=== PATIENT | female | born 1995 | race Caucasian/White ===

== ENCOUNTER 2018-06-27 21:05 | Emergency (ER) | payer MEDICAID, SELFPAY ==
[2018-06-27 21:06] VITALS: BP 153/94; PULSE 92; RESP 16; TEMP 36.8; O2SAT 98; BMI 32.1
--- NOTE | 2018-06-27 21:49 | ED.DCSUM_ITS ---
- ER Visit Summary Date of Service: 06/27/18 Chief Complaint: Rash right groin area History of Present Illness: The patient is a 22 F who wanted to be checked because she was exposed to shingles 7 days ago. She has history of chickenpox as a child. She was seen by her primary care physician and placed on an antifungal cream which I believe his Kenalog cream. She states the itching is resolved but the rash still present. She denies fever, chills night sweats. She has history of diabetes. She has no allergies. Physical Examination: Vital signs remarkable for blood pressure 123/94. Vital signs otherwise unremarkable. She has evidence of folliculitis secondary to shaving the pubis region. There is no inguinal lymphadenopathy. There is an erythematous blanching rash on the proximal anterior right thigh. It is blotchy. This may represent folliculitis difficult to determine since she has been applying a steroid/antifungal cream. Test Results: None were obtained Emergency Department Course and Treatment: Patient was instructed to stop using the cream. Treatment Plan: Appropriate home-going instructions, proper hygiene Disposition: Discharge to home in stable condition Impression: 1. Folliculitis pubis region secondary to shaving 2. Nonspecific erythematous rash This note was generated with [employer] dictation software. It may contain incorrect words, spelling, and punctuation that were not noted in review of the chart prior to signing ED Disposition - Plan for ED Patient: Disposition: Home or Assisted Living Instructions: ED Folliculitis, ED Dermatitis Non Specific Rash Referrals: Care Physician,No Primary [Primary Care Provider] -
[2018-06-27 22:01] VITALS: RESP 14
== END 2018-06-27 22:01 | disposition home or self-care (01) ==
PROVIDERS: Emergency Provider Emergency Medicine
DX: L73.9 Follicular disorder, unspecified (principal); L53.9 Erythematous condition, unspecified; E11.9 Type 2 diabetes mellitus without complications; Z86.19 Personal history of other infectious and parasitic diseases
CPT/HCPCS: 99282

== ENCOUNTER 2021-11-27 06:45 | Emergency (ER) | payer MEDICAID, SELFPAY ==
[2021-11-27 06:46] VITALS: BP 131/98; PULSE 99; RESP 16; TEMP 36.7; O2SAT 98; BMI 36.0
--- NOTE | 2021-11-27 06:55 | EDS_ITS ---
HPI History of Present Illness Chief Complaint: Upper Extremity Injury Detail of Chief Complaint: Atraumatic left shoulder and arm pain Informant: patient Occured/Mechanism Comment: Awakened from sleep because of pain in the left arm/shoulder region Onset/Context/Timing Onset: Hours (0500) Context: Sudden Onset Timing: Continuous Quality of Pain: Aching Location: Left shoulder region Current Severity: Mild Maximum Severity: Severe Worsened by: Movement Relieved by: Internally rotated and a deducted Associated Symptoms Associated Symptoms: Negative for Parasthesia, Weakness or Loss of Funtion Narrative Narrative: Patient is a 26-year-old [id number] woman who presents with left shoulder pain that awoke her from sleep. She denies fever, chills night sweats. She denies injury. She denies paresthesia, anesthesia or motor weakness. She denies cardiac or respiratory symptoms. She denies prior injury. Patient denies rash. There is no history of gout or pseudogout. Tetanus Immunization: 5-10 years Prior similar symptoms: No Recent Illness/Hospitalization: No PFSH PFSH Medical History Anxiety Depression Hypertension Home Medications Prozac 1 tab PO DAILY 06/27/18 [History Last Taken Unknown] naproxen 500 mg tablet 500 mg PO BID #14 tabs 11/27/21 [Rx Last Taken Unknown] Allergy/AdvReac Type Severity Reaction Status Date / Time No Known Allergies Allergy Verified 06/27/18 21:09 Social History (Updated 11/27/21 @ 06:[address] Anthony Torrez MD) household members: significant other Smoking Status: Never smoker substance use type: does not use ROS ROS ED Constitutional Constitutional ED: Denies chills, fever(s), subjective, sweats or weight loss Cardiovascular Cardiovascular: Denies chest pain or palpitations Respiratory/Chest Respiratory/Chest: Denies cough, dyspnea or dyspnea on exertion Integumentary Denies Abrasions or rash Neurologic Neurologic: Denies paresthesias, weakness or other Hematologic/Lymphatic Hematologic/Lymphatic: Denies easy bleeding or easy bruising EXAM Physical Exam Const Vital Signs: 11/27/21 06:46 Temperature 98.1 F Temperature Source Temporal Pulse Rate 99 Respiratory Rate 16 Blood Pressure 131/98 H Blood Pressure Mean 109 Pulse Ox 98 Oxygen Delivery Method Room Air Positive well nourished, well developed and obese; Negative for cachectic, contractures or unkempt Constitutional Narrative: Patient appears uncomfortable. She is holding her arm against her torso. General Appearance ED: well developed; Negative for unkempt, cachectic, contract ures, cyanotic, diaphoretic or NAD Nutritional Appearance: obese; Negative for cachectic HEENT Reports moist mucous membranes HEENT Narrative: Ears normal. Nares patent. normocephalic and atraumatic Eyes PERRL and EOMs intact bilaterally Eyes Narrative: Sclera is anicteric. Neck full ROM and supple Resp normal respiratory effort and clear to auscultation bilaterally Cardio regular rate, regular rhythm, S1 normal heart sound, S2 normal heart sound and no murmurs Back/Spine Cervical Spine: Negative for cervical spine tenderness Thoracic Spine / Upper Back: Negative for thoracic spinal tenderness Extremity normal to inspection; Negative for full ROM Extremity Narrative: Range of motion limited to pain. There is no edema. Axillary, median, radial and ulnar function intact. Radial pulses palpable. There is pain palpation of the bicipital groove. There is pain ovation over the AC joint. There is pain ovation over the shoulder joints. Internal extra rotation causes minimal discomfort. Patient has increased pain with passive AB duction and pain increases as arm is elevated towards 90 degrees. She has no discomfort with flexion against resistance. Neuro oriented x3, CN's II-XII intact bilaterally and moves all extremities Sensorium / Orientation: alert Psych Appearance: Negative for unkempt Skin General Skin Exam: Negative for petechiae Lesions: no lesions Rashes: no rashes MDM MDM MDM Narrative Medical decision making narrative: Atraumatic pain of uncertain etiology. Will obtain x-ray to determine if there is evidence of calcification of the supraspinatus tendon. Also to rule out arthritic changes. Patient with atraumatic musculoskeletal left shoulder pain of unknown etiology. We will treat with NSAIDs. Recommend ice and follow-up with Dr. Zabala Radiography Diagnostic Testin views of the left shoulder were obtained. They were independently reviewed and interpreted by me at 0712 as negative. There is no arthritic changes. There is no asymmetry of the joint. There is no evidence of prior fracture. Discharge Plan Triage Chief Complaint: Upper Extremity Injury ED Provider: Anthony Torrez Dx/Rx/DC Orders Clinical Impression: Pain of left shoulder joint on movement Instructions: ED Shoulder Pain, Uncertain Cause Prescriptions: New naproxen 500 mg tablet 500 mg PO BID Qty: 14 0RF No Action Prozac 1 tab PO DAILY Stand Alone Forms: ED Work / School Excuse Primary Care Provider: Neo Zabala Referrals: Neo Zabala MD [Primary Care Provider] - 3-5 Days if not improving Activity Restrictions/Additional Instructions: 1. Apply ice 6-8 times a day for the next 2 to 3 days 2. If you develop a rash, fever or swelling of your left shoulder region return to the emergency department Disposition Disposition: Home, Self Care
[2021-11-27] MEDS: HYDROcodone Bitartrate/Apap 5/325 Tablet PO (06:59)
--- NOTE | 2021-11-27 07:04 | RAD_ITS ---
STUDY: X-RAY - LEFT SHOULDER REASON FOR EXAM: Left shoulder pain this morning, limited range of motion, no specific injury. TECHNIQUE: 4 view(s) of the shoulder. COMPARISON: None. FINDINGS: Normal glenohumeral articulation. Normal acromioclavicular joint. Normal acromion. Normal humeral head and visualized proximal humerus with an incidental pseudocyst in the greater tuberosity on the external view from normal yellow marrow. The soft tissue structures are unremarkable. Normal visualized pulmonary apex. RAD/Shoulder min 2 Views IMPRESSION: Normal x-ray examination of the left shoulder. Electronically Signed: Richard Agustin MD at 7:40 EDT ,
[2021-11-27 07:28] VITALS: BP 119/89; PULSE 78; RESP 16; O2SAT 95
== END 2021-11-27 07:30 | disposition home or self-care (01) ==
LOC: ED 07:20
PROVIDERS: Emergency Provider Emergency Medicine; PCP Family Medicine; Visit Provider Emergency Medicine
DX: M25.512 Pain in left shoulder (principal); I10 Essential (primary) hypertension; M79.622 Pain in left upper arm; F41.9 Anxiety disorder, unspecified; F32.A Depression, unspecified; E66.9 Obesity, unspecified; Z79.899 Other long term (current) drug therapy
CPT/HCPCS: 73030; 99282

== ENCOUNTER 2023-02-13 20:48 | Emergency (ER) | payer MEDICAID, SELFPAY ==
[2023-02-13 20:49] VITALS: BP 156/90; PULSE 88; RESP 18; TEMP 36.4; O2SAT 98; BMI 33.5
[2023-02-13 21:26] LABS: Absolute Lymphocyte Count 4.26 X10^3/uL (0.83-4.51); Absolute Neutrophil Count 5.3 X10^3/uL (2.0-7.7); Basophil# 0.06 X10^3/uL; Basophil% 0.6 % (0-1); Eosinophil# 0.18 X10^3/uL; Eosinophils% 1.7 % (0-5); Hematocrit 43.4 % (37-47); Hemoglobin 14.3 g/dL (12.0-15.0); Lymphocyte # 4.26 X10^3/ul (0.83-4.51); Lymphocyte % 39.9 % (19-41); Mean Corp Hgb Conc 32.9 g/dL (32-36); Mean Corpuscular Hgb 28.8 pg (27.0-32.0); Mean Corpuscular Volume 87.5 fL (81-99); Mean Platelet Vol. 10.7 fl (6.2-12.0); Monocyte# 0.81 X10^3/uL; Monocyte% 7.6 % (0-10); NRBC Flagged by Analyzer 0 % (0-5); Neutrophil # 5.34 X10^3/uL (2.7-7.7); Platelet Count 382 K/mm3 (150-450); RBC Distribution Width CV 12.8 % (11.6-14.6); RBC Distribution Width SD 40.9 fl (35.1-43.9); Red Blood Count 4.96 M/mm3 (4.2-5.4); White Blood Count 10.7 K/mm3 (4.4-11.0)
[2023-02-13 21:42] LABS: Anion Gap 4 (5-15); BUN 14 mg/dL (7-18); BUN/Creat Ratio 17.5 RATIO (10-20); Calcium,Total 9.2 mg/dL (8.5-10.1); Chloride 109 mmol/L (98-107); EST Glomerular Filtration Rate 92 mL/min (>60); Est Glom Filt Rate - Afr Amer 112 mL/min (>60); Estimated Creatinine Clearance 103.63 ml/min; Glucose 101 mg/dL (74-106); Potassium 3.7 mmol/L (3.5-5.1); Sodium Level 142 mmol/L (136-145)
[2023-02-13 21:48] LABS: Amphetamine Urine VISTA NEGATIVE (<1000 ng/mL); Barbiturate Urine VISTA NEGATIVE (< 200 ng/mL); Benzodiazepine Urine VISTA NEGATIVE (< 200 ng/mL); Cocaine Urine VISTA POSITIVE (< 300 ng/mL); Ecstacy Urine VISTA NEGATIVE (< 500 ng/mL); Methadone Urine VISTA NEGATIVE (< 300 ng/mL); PCP Urine VISTA NEGATIVE (< 25 ng/mL); THC Urine VISTA NEGATIVE (< 50 ng/mL); Vista UDS pH Range 6
[2023-02-13 21:56] LABS: Internal QC Validated? YES +Cl - CLEAR BKGD; Pregnancy, Serum, hCG Quali. NEGATIVE Negative
[2023-02-13 22:00] VITALS: PULSE 71; RESP 16; O2SAT 97
[2023-02-13 22:01] LABS: Alcohol, Blood (Medical)-Serum < 3.0 mg/dL
--- NOTE | 2023-02-13 22:12 | NURSING ---
CALLED CRISIS AT [phone]
--- NOTE | 2023-02-13 22:23 | ED.RN ---
Per dr. cheng no sitter needed.
--- NOTE | 2023-02-13 22:26 | EDS_ITS ---
HPI HPI - Psych History of Present Illness Chief Complaint: Suicidal Narrative Narrative: 7-year-old female with history of depression presenting with suicidal thoughts and depression. She states he does not have a specific plan. She states she has history depression but no history of suicide attempts. She states he feels this way because she does not feel good enough for anybody. There is no specific trigger. She is here with her significant other. She stated currently she does not feel suicidal anymore. She and her significant other state that they are surrounded by family and I have a lot of support. PFSH PFSH Medical History Anxiety Depression Hypertension Home Medications Prozac 1 tab PO DAILY 06/27/18 [History Last Taken Unknown] naproxen 500 mg tablet 500 mg PO BID #14 tabs 11/27/21 [Rx Last Taken Unknown] Allergy/AdvReac Type Severity Reaction Status Date / Time No Known Allergies Allergy Verified 02/13/23 20:51 Social History household members: significant other Smoking Status: Never smoker substance use type: does not use ROS ROS ED Constitutional Constitutional ED: Denies chills, fever(s) or sweats Eyes Eyes: Denies blurry vision or change in vision ENT ENT ED: Denies ear pain or sore throat Cardiovascular Cardiovascular: Denies chest pain, palpitations or racing heartbeat Respiratory/Chest Respiratory/Chest: Denies cough, dyspnea or sputum Gastrointestinal Gastrointestinal: Denies abdominal pain, constipation, diarrhea, nausea or vomiting Genitourinary Genitourinary ED: Denies dysuria, hematuria or urinary frequency Musculoskeletal Musculoskeletal: Denies arthralgias, myalgias or neck pain Integumentary Denies abscess, Abrasions or rash Neurologic Neurologic: Denies headache(s), paresthesias or weakness Psychiatric Psychiatric: Reports depression and suicidal thoughts; Denies anxiety Endocrine Endocrinology: Denies polydipsia or polyuria EXAM Physical Exam Const Vital Signs: 02/13/23 20:49 02/13/23 22:00 02/13/23 23:00 Temperature 97.6 F L Temperature Source Temporal Pulse Rate 88 71 Respiratory Rate 18 16 16 Blood Pressure 156/90 H Blood Pressure Mean 112 Pulse Ox 98 97 Oxygen Delivery Method Room Air Room Air Positive well nourished General Appearance ED: NAD; Negative for pallor HEENT Reports moist mucous membranes normocephalic and atraumatic Eyes PERRL and EOMs intact bilaterally Resp normal respiratory effort Cardio Rate: regular rate Rhythm: regular rhythm Neuro oriented x3 and CN's II-XII intact bilaterally Sensorium / Orientation: alert Psych mental status grossly normal, thought process normal and cooperative Appearance: grossly normal and appropriate Attitude: calm and engaged Activity / Motor Behavior: appropriate eye contact Speech: normal speech Thought Process: normal thought process Thought Content: suicidality Attention / Concentration: attention grossly intact and concentration grossly intact Memory / Cognition: memory grossly intact Insight: fair Judgement: fair Skin General Skin Exam: Negative for jaundice or pallor MDM MDM MDM Narrative Medical decision making narrative: Presenting with suicidal thoughts she had earlier. She states she no longer feels this way. Screening lab work was obtained and the blood work appears normal. Urine drug screen is positive for cocaine. EtOH negative. Patient medically cleared for evaluation by crisis. I suspect she will be able to go home. We will sign this out to incoming ED physician for monitoring. Impression: 1. Depression 2. Suicidal thoughts Lab Data Attestation: I reviewed the patient's lab results. Labs: Laboratory Results - last 24 hr 02/13/23 21:00 WBC 10.7 RBC 4.96 Hgb 14.3 Hct 43.4 MCV 87.5 MCH 28.8 MCHC 32.9 RDW Std Deviation 40.9 RDW Coeff of Roni 12.8 Plt Count 382 MPV 10.7 Immature Gran % (Auto) 0.200 Neut % (Auto) 50.0 Lymph % (Auto) 39.9 [place] % (Auto) 7.6 Eos % (Auto) 1.7 Baso % (Auto) 0.6 Absolute Neuts (auto) 5.3 Absolute Lymphs (auto) 4.26 Nucleated RBC % 0 Sodium 142 Potassium 3.7 Chloride 109 H Carbon Dioxide 29.0 Anion Gap 4 L BUN 14 Creatinine 0.80 Estim Creat Clear Calc 103.63 Est GFR (MDRD) Af Amer 112 Est GFR (MDRD) Non-Af 92 BUN/Creatinine Ratio 17.5 Glucose 101 Calcium 9.2 Serum , Qual NEGATIVE Urine Opiates Screen NEGATIVE Urine Methadone Screen NEGATIVE Ur Barbiturates Screen NEGATIVE Ur Phencyclidine Scrn NEGATIVE Ur Amphetamines Screen NEGATIVE MDMA (Ecstasy) Screen NEGATIVE U Benzodiazepines Scrn NEGATIVE Urine Cocaine Screen POSITIVE H U Cannabinoids Screen NEGATIVE Ur Drug Screen Comment Ethyl Alcohol < 3.0 Discharge Plan Triage Chief Complaint: Suicidal ED Provider: Vikash Benson Dx/Rx/DC Orders Instructions: ED Depression Prescriptions: No Action Prozac 1 tab PO DAILY naproxen 500 mg tablet 500 mg PO BID Qty: 14 0RF Primary Care Provider: Neo Zabala Referrals: Neo Zabala MD [Primary Care Provider] - Disposition Disposition: Home, Self Care
[2023-02-13 23:00] VITALS: RESP 16
[2023-02-14 01:22] VITALS: BP 126/65; PULSE 65; RESP 17; O2SAT 97
== END 2023-02-14 01:24 | disposition home or self-care (01) ==
PROVIDERS: Emergency Provider Student in an Organized Health Care Education/Training Program; PCP Family Medicine; Visit Provider Student in an Organized Health Care Education/Training Program
DX: R45.851 Suicidal ideations (principal); I10 Essential (primary) hypertension; F32.A Depression, unspecified
CPT/HCPCS: 80048; 80307; 82077; 84703; 85025; 87811; 99283